=== PATIENT | female | born 1985 | race Caucasian/White ===

== ENCOUNTER 2017-09-28 15:35 | Emergency (ER) | payer MEDICAID ==
[~2017-09-28] VITALS: Ht 172.7 cm; Wt 81.6 kg
[2017-09-28 15:40] VITALS: BP_SYST 127
[2017-09-28] MEDS ORDERED: KETOROLAC TROMETHAMINE 30 MG VIAL IM ONE (15:45)
[2017-09-28 16:57] VITALS: BP_SYST 124
== END 2017-09-28 16:55 | disposition home or self-care (01) ==
LOC: SED 15:35
DX: S00.83XA Contusion of other part of head, initial encounter (principal); J45.909 Unspecified asthma, uncomplicated; R03.0 Elevated blood-pressure reading, without diagnosis of hypertension; Y09 Assault by unspecified means; Y93.89 Activity, other specified; Y92.89 Other specified places as the place of occurrence of the external cause; Y99.8 Other external cause status
CPT/HCPCS: 70486; 81025; 96372; 99284; J1885

== ENCOUNTER 2017-12-06 15:48 | Emergency (ER) | payer MEDICAID ==
[~2017-12-06] VITALS: Ht 172.7 cm; Wt 86.2 kg
[2017-12-06 15:48] VITALS: BP_SYST 136
[2017-12-06] MEDS ORDERED: IPRATROPIUM BROM 0.5 MG/2.5 ML VIAL.NEB (ATROVENT) IH ONE (16:00)
[2017-12-06] MEDS ORDERED: ALBUTEROL SULFATE 0.083% 2.5 MG/3 ML VIAL.NEB IH ONE (16:00)
[2017-12-06] MEDS ORDERED: methylPREDNISolone SOD SUCC/PF 62.5 MG/ML VIAL IVP ONE (16:00)
[2017-12-06] MEDS ORDERED: MAGNESIUM SULFATE 50 ML IV ONE (16:45)
[2017-12-06 18:13] VITALS: BP_SYST 127
== END 2017-12-06 18:13 | disposition home or self-care (01) ==
LOC: SED 15:48
DX: J45.901 Unspecified asthma with (acute) exacerbation (principal); F17.200 Nicotine dependence, unspecified, uncomplicated
CPT/HCPCS: 94640; 96365; 96375; 99284; J2930; J3475; J7613

== ENCOUNTER 2021-04-17 10:45 | Emergency (ER) | payer MEDICAID, SELFPAY ==
[~2021-04-17] VITALS: Ht 170.2 cm; Wt 97.5 kg
[2021-04-17 11:02] VITALS: BP_SYST 120
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
--- NOTE | 2021-04-17 11:05 | NUR ---
Patient to ER Tent
--- NOTE | 2021-04-17 11:15 | NUR ---
Dr Bauman evaluating patient in the tent
[2021-04-17] MEDS ORDERED: KETOROLAC TROMETHAMINE 15 MG VIAL IM ONE (12:00)
[2021-04-17] MEDS ORDERED: METH-634 PO (14:19)
[2021-04-17] MEDS ORDERED: DOXY100C5 PO (14:19)
[2021-04-17 14:47] VITALS: BP_SYST 120
--- NOTE | 2021-04-17 14:50 | NUR ---
Patient given written and verbal discharge instructions and verbalizes understanding. ER MD discussed with patient the results and treatment provided. Patient in stable condition. ID arm band removed. Rx of Doxycicline/Robaxin given. Patient educated on pain management and to follow up with PMD. Pain Scale 2/10 . Opportunity for questions provided and answered. Medication side effect fact sheet provided.
== END 2021-04-17 14:50 | disposition home or self-care (01) ==
LOC: SED 10:45
DX: J01.90 Acute sinusitis, unspecified (principal); G89.29 Other chronic pain; M54.50 Low back pain, unspecified; J45.909 Unspecified asthma, uncomplicated
CPT/HCPCS: 70480; 76376; 81025; 96372; 99284; J1885

== ENCOUNTER 2021-08-16 12:07 | Emergency (ER) | payer MEDICAID ==
[~2021-08-16] VITALS: Ht 172.7 cm; Wt 97.5 kg
[~2021-08-16 12:07] MED LIST: DOXY100C5 PO; METH-634 PO
[2021-08-16 12:33] VITALS: BP_SYST 113
--- NOTE | 2021-08-16 12:34 | NUR ---
ER Dr. Reich at bedside examining patient.
--- NOTE | 2021-08-16 12:35 | NUR ---
Patient to ER bed 3 for evaluation. Side rails up. Report given to Gia MONTEIRO.
--- NOTE | 2021-08-16 12:40 | NUR ---
Pt walked ambulatory to bed 3. Awaiting Xray.
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
[2021-08-16] MEDS ORDERED: NAPR-688 PO (13:20)
[2021-08-16 13:47] VITALS: BP_SYST 113
--- NOTE | 2021-08-16 13:47 | NUR ---
Patient given written and verbal discharge instructions and verbalizes understanding. ER MD discussed with patient the results and treatment provided. Patient in stable condition. ID arm band removed. Rx of Naproxen given. Patient educated on pain management and to follow up with PMD. Pain Scale . Opportunity for questions provided and answered. Medication side effect fact sheet provided.
== END 2021-08-16 13:38 | disposition home or self-care (01) ==
LOC: SED 12:07
DX: S09.93XA Unspecified injury of face, initial encounter (principal); J45.909 Unspecified asthma, uncomplicated; W50.1XXA Accidental kick by another person, initial encounter; Y93.89 Activity, other specified; Y92.89 Other specified places as the place of occurrence of the external cause; Y99.8 Other external cause status
CPT/HCPCS: 70150-TC; 99283

== ENCOUNTER 2021-11-06 18:20 | Emergency (ER) | payer MEDICAID ==
[~2021-11-06] VITALS: Ht 170.2 cm; Wt 97.5 kg
[2021-11-06 18:20] VITALS: BP_SYST 108
[~2021-11-06 18:20] MED LIST changes: +NAPR-688 PO
[2021-11-06] MEDS ORDERED: ALBMDI INH (20:49)
[2021-11-06] MEDS ORDERED: PRED20TA PO (20:50)
[2021-11-06] MEDS ORDERED: ALBU2.5V7 INH (20:53)
[2021-11-06 21:00] VITALS: BP_SYST 105
== END 2021-11-06 21:00 | disposition home or self-care (01) ==
LOC: SED 18:20
DX: J45.909 Unspecified asthma, uncomplicated (principal); R05.9 Cough, unspecified; R09.81 Nasal congestion; Z79.899 Other long term (current) drug therapy; Z20.822 Contact with and (suspected) exposure to COVID-19
CPT/HCPCS: 36415; 71045; 99284

== ENCOUNTER 2022-06-08 20:03 | Emergency (ER) | payer MEDICAID ==
[~2022-06-08] VITALS: Ht 172.7 cm; Wt 81.6 kg
[~2022-06-08 20:03] MED LIST changes: +ALBMDI INH; +ALBU2.5V7 INH; +PRED20TA PO
[2022-06-08 20:28] VITALS: BP_SYST 114
[2022-06-08 20:54] LABS: BASOPHILS % (AUTO) 0.3 % (0.0-2.0); HEMATOCRIT 46.6 % (36-48); HEMOGLOBIN 15.8 g/dL (12.0-16.0); LYMPHOCYTES # (AUTO) 2.5 K/uL (1.0-5.5); LYMPHOCYTES % (AUTO) 19.6 % (20.5-51.5); MEAN CORPUSCULAR HEMOGLOBIN 30 pg (27-31); MEAN CORPUSCULAR HGB CONC 34 % (32-36); MEAN CORPUSCULAR VOLUME 87 fL (79.0-98.0); MONOCYTES # (AUTO) 0.8 K/uL (0.0-1.0); MONOCYTES % (AUTO) 6.2 % (1.7-9.3); NEUTROPHILS # (AUTO) 9.3 K/uL (1.8-7.7); NEUTROPHILS % (AUTO) 73.9 % (40.0-70.0); PLATELET COUNT (AUTO) 362 K/uL (130-430); RED BLOOD CELL COUNT(AUTO) 5.34 MIL/uL (4.2-6.2); RED CELL DISTRIBUTION WIDTH 15.1 % (9.0-15.0); WHITE BLOOD COUNT (AUTO) 12.6 K/uL (4.8-10.8)
[2022-06-08 21:18] LABS: ANION GAP 9 (5-15); CALCIUM 9.3 mg/dL (8.4-11.0); CHLORIDE 97 mmol/L (98-107); CREATININE 1.12 mg/dL (0.55-1.30); GLUCOSE 125 mg/dL (70-99); UREA NITROGEN, BLOOD 38 mg/dL (8-21)
[2022-06-08 21:24] LABS: ALANINE AMINOTRANSFERASE 34 U/L (12-78); ALBUMIN 3.6 g/dL (3.4-4.8); ASPARTATE AMINOTRANSFERASE 8 U/L (10-37); GFR AFRICAN AMERICAN 71 mL/min (>90); TOTAL BILIRUBIN 0.7 mg/dL (0.0-1.0)
[2022-06-08 22:27] VITALS: BP_SYST 130
--- NOTE | 2022-06-08 22:28 | NUR ---
Placed in HW2 . Placed on residential monitor, blood pressure machine and pulse oximeter. To gown for exam. Side rails up.
--- NOTE | 2022-06-08 22:28 | NUR ---
Patient given written and verbal discharge instructions and verbalizes understanding. ER MD discussed with patient the results and treatment provided. Patient in stable condition. ID arm band removed. Rx of given. Patient educated on pain management and to follow up with PMD. Opportunity for questions provided and answered. Medication side effect fact sheet provided.
== END 2022-06-08 22:28 | disposition home or self-care (01) ==
LOC: SED 20:03
DX: R06.02 Shortness of breath (principal); J45.909 Unspecified asthma, uncomplicated; Z79.899 Other long term (current) drug therapy
CPT/HCPCS: 36415; 71045; 80053; 83880; 84484; 85025; 93005; 99285